=== PATIENT | female | born 1980 | race Caucasian/White ===

== ENCOUNTER 2019-10-15 09:14 | Outpatient (CLI) | payer OTHER, SELFPAY ==
--- NOTE | ~2019-10-15 | US_ITS ---
EXAMINATION: US OB limited DATE: 10/15/2019 09:45 INDICATION: Low lying placenta. Second trimester. TECHNIQUE: Real-time ultrasound of the pelvis was performed. COMPARISON: Ultrasound 06/26/2019 FINDINGS: There is a single fetus in breech presentation. The placenta is posterior, 3.1 cm from the cervix. F etal heart rate is 171 beats per minute (bpm). The amniotic fluid volume is subjectively normal. IMPRESSION: 1. Single living fetus in breech presentation. 2. Normal placenta. Reviewed, dictated and finalized at location A.
== END 2019-10-15 09:15 | disposition home or self-care (01) ==
PROVIDERS: PCP Family Medicine; Visit Provider Obstetrics & Gynecology Gynecology
DX: O44.42 Low lying placenta NOS or without hemorrhage, second trimester (principal)
CPT/HCPCS: 76815

== ENCOUNTER 2019-11-05 11:45 | Observation (INO) | payer OTHER, SELFPAY ==
[2019-11-05] VITALS (8 sets, daily range): BP systolic 89–109; BP diastolic 45–70; PULSE 85–106; BMI 25.2
[2019-11-05 13:00] LABS: Add Urine Microscopic? NO; Appearance Urine Clear (Clear); Bilirubin Urine Negative (Negative); Blood Urine Negative (Negative); Color Urine Straw (Yellow); Glucose Urine UA Negative (Negative); Ketones Urine Negative (Negative); Leukocyte Esterase Ur Negative LEU/UL (NEGATIVE); Nitrate Urine Negative (Negative); Protein Urine Negative (Negative); Specific Grav Ur 1.006 (1.001-1.035); Urobilinogen Urine Negative mg/dL (<2.0)
[2019-11-05 13:01] LABS: Bacteria Urine 2+ /hpf; Mucus Urine Rare /lpf; RBC Urine 0-2 /hpf (0-2); Squamous Epithelial Cell Urine Occasional /hpf (Few); WBC Urine 0-3 /hpf (0-3)
[2019-11-05 14:03] LABS: Hematocrit 28.3 % (37.0-47.0); Hemoglobin 9.8 g/dL (12.0-15.0); Mean Corpuscular HGB Conc 34.6 g/dl (32-36); Mean Corpuscular Hemoglobin 31.4 pg (26-34); Mean Corpuscular Volume 90.7 fl (80-100); Mean Platelet Volume 9.9 fl (7.4-10.4); Platelet Count Result 224 k/mm3 (150-375); Red Blood Count 3.12 M/mm3 (4.2-5.4); Red Cell Distribution Width 12.2 % (11.5-14.5); White Blood Count 11.4 K/mm3 (4.5-10.0)
--- NOTE | 2019-11-05 14:52 | OBADM ---
This patient, Evelin Cortés, admitted to the OB room OB Post 112 for observation. Patient/family oriented to hospital policies and general routines including ID bracelet, bed and alarms, visiting hours, pain management, procedures, bathroom and other care routines, personal items, smoking policy, room service/diet, and visiting hours. Patient/Family are encouraged to report perceived risks to care and to ask questions if they do not understand what they are told or what they should do.
--- NOTE | 2019-11-14 11:43 | P.PNOB_ITS ---
OB - Triage/Final Diagnosis Evaluation Laboratory results: Laboratory Tests 11/05/19 11/05/19 12:50 13:50 WBC 11.4 H RBC 3.12 L Hgb 9.8 L D Hct 28.3 L MCV 90.7 MCH 31.4 MCHC 34.6 RDW 12.2 Plt Count 224 MPV 9.9 Urine Color Straw Urine Appearance Clear Urine pH 7.0 Ur Specific [place] 1.006 Urine Protein Negative Urine Glucose (UA) Negative Urine Ketones Negative Ur Blood (Man) Negative Urine Nitrate Negative Urine Bilirubin Negative Urine Urobilinogen Negative Ur Leukocyte Esterase Negative Urine RBC 0-2 Urine WBC 0-3 Ur Squamous Epith Cells Occasional Urine Bacteria 2+ H Urine Mucus Rare Final Diagnosis (1) contractions: Code(s): O47.9 - False labor, unspecified Status: Acute
== END 2019-11-05 15:14 | disposition home or self-care (01) ==
PROVIDERS: Admitting Provider Obstetrics & Gynecology; PCP Family Medicine; Visit Provider Obstetrics & Gynecology
DX: O47.02 False labor before 37 completed weeks of gestation, second trimester (principal); Z3A.27 27 weeks gestation of pregnancy; O09.522 Supervision of elderly multigravida, second trimester
CPT/HCPCS: 36415; 81003; 85027; 87086; G0378; G0379

== ENCOUNTER 2020-01-26 05:39 | Inpatient (IN) | payer OTHER, SELFPAY ==
--- NOTE | 2020-01-07 14:18 | PC.NURSE ---
VERIFIED WITH OR SCHEDULE AND PATIENT--C/S WITH TUBAL LIGATION ON 01/28/20 AT 0730 PATIENT GIVEN REQUISITION FOR PRE-OP LAB DRAW ON 01/26/20
[2020-01-26] VITALS (46 sets, daily range): BP systolic 91–118; BP diastolic 46–76; PULSE 67–120; RESP 13–20; TEMP 36.4–36.9; O2SAT 98–100; BMI 27.3
[2020-01-26] MEDS: LACTATED RINGERS 1,000 ML 125 ML IV CONT ×2 (06:56→08:43)
--- NOTE | 2020-01-26 07:25 | LDADM ---
This patient, Evelin Cortés, was admitted to Labor/Delivery/Recovery 120 on 01/26/20 at 05:39. Plans for labor, pain management and were discussed with patient. Patient/family oriented to hospital policies and general routines including ID bracelet, bed and alarms, visiting hours, pain management, procedures, bathroom and other care routines, personal items, smoking policy, room service/diet and guest tray routines, security routines, and visiting hours. Patient/Family are encouraged to report perceived risks to care and to ask questions if they do not understand what they are told or what they should do. See OBIX for further documentation.
[2020-01-26 07:41] LABS: Basophils Percent Auto 0.3 % (0.2-1.2); Eosinophils Absolute Auto 0.1 K/mm3 (0-0.3); Hematocrit 35.9 % (37.0-47.0); Hemoglobin 12.8 g/dL (12.0-15.0); Immature Granulocyte Absolute 0.11 K/mm3 (0.00-0.031); Mean Corpuscular HGB Conc 35.7 g/dl (32-36); Mean Corpuscular Hemoglobin 31.4 pg (26-34); Mean Platelet Volume 10.8 fl (7.4-10.4); Monocytes Absolute Auto 0.7 K/mm3 (0.1-0.6); Monocytes Percent Auto 6.3 % (2.6-8.5); Neutrophils Absolute Auto 8.5 K/mm3 (1.3-6.7); Neutrophils Percent Auto 75.4 % (45.5-73.1); Platelet Count Result 263 k/mm3 (150-375); Red Blood Count 4.08 M/mm3 (4.2-5.4); Red Cell Distribution Width 12.6 % (11.5-14.5); White Blood Count 11.3 K/mm3 (4.5-10.0)
--- NOTE | 2020-01-26 08:31 | WPDANESEPPF ---
Anes - Initial Pre Proc Eval Procedure: Operation Date: 01/26/20 09:00 Proposed Procedures p Repeat Section With Bilateral Tubal Ligation With Fallopian Rings - Rissa Astudillo MD Date/Time: 01/26/20 08:31 Surgeon: Rissa Astudillo MD Pre Op Diagnosis: section Patient Data Age: 39 Gender: F Height: 1.57 m Weight: 68 kg Last Vital Signs Pulse 104 H 01/26/20 06:31 BP 110/76 01/26/20 06:31 Allergies Allergy/AdvReac Type Severity Reaction Status Date / Time erythromycin base Allergy Unknown Hives Verified 01/07/20 13:39 Home Medications Medication Instructions Recorded Confirmed Type tablet PO 06/10/19 History aspirin [Adult Low Dose Aspirin] 81 mg PO DAILY 01/07/20 01/07/20 History ergocalciferol (vitamin D2) 1,250 mcg PO WEEKLY 01/07/20 01/07/20 History [Vitamin D2] ferrous sulfate 325 mg PO DAILY 01/07/20 01/07/20 History Laboratory Tests 01/26/20 01/26/20 01/26/20 06:53 06:53 06:53 WBC 11.3 K/mm3 H K/mm3 (4.5-10.0) RBC 4.08 M/mm3 L M/mm3 (4.2-5.4) Hgb 12.8 g/dL D g/dL (12.0-15.0) Hct 35.9 % L % (37.0-47.0) MCV 88.0 fl fl (80-100) MCH 31.4 pg pg (26-34) MCHC 35.7 g/dl g/dl (32-36) RDW 12.6 % % (11.5-14.5) Plt Count 263 k/mm3 k/mm3 (150-375) MPV 10.8 fl H fl (7.4-10.4) Immature Gran % (Auto) 1.0 % H % (0-0.5) Neut % (Auto) 75.4 % H % (45.5-73.1) Lymph % (Auto) 16.0 % L % (18.3-44.2) [place] % (Auto) 6.3 % % (2.6-8.5) Eos % (Auto) 1.0 % % (0-4.4) Baso % (Auto) 0.3 % % (0.2-1.2) Lymph # (Auto) 1.80 K/mm3 K/mm3 (0.9-3.2) [place] # (Auto) 0.7 K/mm3 H K/mm3 (0.1-0.6) Eos # (Auto) 0.1 K/mm3 K/mm3 (0-0.3) Baso # (Auto) 0.0 K/mm3 K/mm3 (0.0-0.1) Abs Immat Gran (auto) 0.11 K/mm3 H K/mm3 (0.00-0.031) Absolute Neuts (auto) 8.5 K/mm3 H K/mm3 (1.3-6.7) Absolute Nucleated RBC 0.0 K/mm3 K/mm3 (0.0-0.012) Nucleated RBC % 0.0 % % (0.0-0.2) RPR Pending Blood Type A Positive Antibody Screen Negative Patient hx anesthesia problems: none Family hx anesthesia problems: none [facility] Past Medical History Medical History (Updated 01/26/20 @ 08:32 by Bakari Whaley MD) H/O paroxysmal supraventricular tachycardia contractions Surgical History Surgical History (Updated 06/10/19 @ 10:21 by Alona Camacho PA-C) History of section Social History Social History (Updated 06/10/19 @ 10:21 by Alona Camacho PA-C) Smoking status: Never smoker Alcohol intake: former Substance use: never Spiritual care concerns: No Anes - Eval Final PreProcedure Day of Procedure 01/26/20 08:31 Patient weight: overweight Heart: regular rate and rhythm Lungs: clear to auscultation and normal air movement Airway: Mallampati scale class II Neurological: alert and oriented Last oral intake: >/= 8 hours ASA classification: II Emergent: no Anesthetic plan: proceed Anesthesia type and monitoring: regional spinal Informed Consent: The patient's anesthetic plan and its attendant risks and benefits were discussed with the patient/family/POA. Questions were solicited and answers provided to the satisfaction of the patient/family/POA.
--- NOTE | 2020-01-26 09:51 | PM.OBDSVD ---
DS: Admitting Diagnosis Admitting Diagnosis Admitting Diagnosis: IUP 39 wks SROM prior section requests sterilization DS: Discharge Diagnosis Discharge Diagnosis (1) delivery delivered: Code(s): O82 - Encounter for delivery without indication Status: Acute (2) Encounter for sterilization: Code(s): Z30.2 - Encounter for sterilization Status: Acute (3) 39 weeks gestation of : Code(s): Z3A.39 - 39 weeks gestation of Status: Acute (4) History of section: Code(s): Z98.891 - History of uterine scar from previous surgery Status: Acute OB - DS: Summary OB Procedures : Ultrasound OB Procedures Intrapartum: low cervical, transverse and Tubal ligation OB Procedures: : None Peripartum Data Infant Delivery Method: Section Procedures: Procedures Operation Date: 01/26/20 09:00 <No data on this case meets the specified criteria> complications: none Status at Discharge Functional status at discharge: independent ambulation Overall status at discharge: patient is progressing back to baseline Time Spent with Patient Time attestation: Total time spent providing and/or coordinating discharge services: DS: Data Data Completed and Pending Labs on day of discharge: Labs from last 24 hours 01/26/20 01/26/20 01/26/20 06:53 06:53 06:53 WBC 11.3 H RBC 4.08 L Hgb 12.8 D Hct 35.9 L MCV 88.0 MCH 31.4 MCHC 35.7 RDW 12.6 Plt Count 263 MPV 10.8 H Immature Gran % (Auto) 1.0 H Neut % (Auto) 75.4 H Lymph % (Auto) 16.0 L [place] % (Auto) 6.3 Eos % (Auto) 1.0 Baso % (Auto) 0.3 Lymph # (Auto) 1.80 [place] # (Auto) 0.7 H Eos # (Auto) 0.1 Baso # (Auto) 0.0 Abs Immat Gran (auto) 0.11 H Absolute Neuts (auto) 8.5 H Absolute Nucleated RBC 0.0 Nucleated RBC % 0.0 RPR Pending Blood Type A Positive Antibody Screen Negative Discharge Plan Discharge Attending physician on discharge: Rissa Astudillo Discharging Clinician: Rissa Astudillo Anticipated Discharge Date/Time: 01/28/20 09:54 Patient Disposition: Home, Self-Care Activity: may shower, may drive after 2 weeks and pelvic rest Diet: regular Wound Care Instructions: incision open to air Patient Instructions: Antibiotic Form Stand Alone Forms: General Discharge Information Follow-up/Referrals: Rissa Astudillo MD [Physician] - 1 Week Discharge Medications: New hydrocodone-acetaminophen 5-325 mg Tablet 1 tab PO Q3H PRN (Reason: Moderate Pain (4-6)) Qty: 20 RF: 0 Continued ergocalciferol (vitamin D2) [Vitamin D2] 1,250 mcg (50,000 unit) Capsule 1,250 mcg PO WEEKLY RF: 0 Discontinued aspirin [Adult Low Dose Aspirin] 81 mg Tablet,Delayed Release (Dr/Ec) 81 mg PO DAILY RF: 0 ferrous sulfate 325 mg (65 mg iron) Tablet 325 mg PO DAILY RF: 0 No Action 28-800 mg-mcg Tablet PO RF: 0 Date of admission: 01/26/20 05:39 Primary Care Provider: Emery Vega Admitting Provider: Rissa Astudillo Attending physician on admission: Rissa Astudillo Condition: Stable
--- NOTE | 2020-01-26 09:54 | PM.PROC ---
Procedure Note - Detailed Date of procedure: 01/26/20 Pre-op diagnosis: section Prior csection; IUP 39 wks; SROM; Requests sterilization Post-op diagnosis: same Procedure performed: repeat LTCS and BTL Description of procedure: The patient was taken to the operating room and placed under spinal anesthesia in the dorsal supine position with a leftward tilt. Once anesthesia was deemed adequate a Pfannenstiel skin incision was made and carried down to the underlying layer of fascia. The fascia was nicked in the midline and extended laterally using Johnson scissors. [facility] 3 used to tent the fascia was then dissected off using sharp and blunt dissection. The peritoneum was tented and entered with Metzenbaum scissors the incision was extended with blunt traction. The bladder blade is placed the vesicouterine peritoneum is tented and entered with Metzenbaum scissors. The bladder flap is created using sharp and blunt dissection due to adhesions. The lower uterine segment is incised in a transverse fashion with the scalpel and extended laterally using blunt traction. The 's head was delivered through the incision while the automotive service assistant applied fundal pressure. The remainder of the infant was fully delivered and the cord clamped and cut. The was handed to the waiting OB nurse. The placenta is removed manually.The uterus is then cleared of all clots and debris. The uterus was exteriorized. The lower uterine segment was closed using 0 Monocryl in a running locked fashion and a 2nd suture of same was used for imbrication. the right tube is grasped with a Vilma and dissected off the ovary using the Bovie cautery. The tube is then cross clamped with a Z clamp removing most of the distal 2/3 of the tube. The tube was excised and the pedicle tied off using 0 Vicryl. Good hemostasis is noted. The left tube is grasped with a [place] and was noted to be anatomically out of place below scar tissue at the round ligament. The scar tissue was Bovie cauterized and the tube released the tube was then crossclamped removing approximately 2/3 of the distal portion of the tube. The tube was excised and the pedicle tied off using 0 Vicryl. The cul-de-sac was irrigated and the uterus returned to the abdomen. The gutters were irrigated. The uterine incision was again inspected and noted to be hemostatic. The fascia was closed using 0 Vicryl in a running fashion. Subcutaneous tissues are irrigated and made hemostatic using Bovie cautery. The skin incision was closed using 4 0 Vicryl in a subcuticular fashion. Dermaflex was placed over the incision. Sponge instrument needle counts are correct per the OR staff. Patient did receive Ancef prior to incision. Anesthesia: spinal Surgeon: Rissa Astudillo MD Estimated blood loss (mL): 345 Drains: Yes (penn) Packing: No Pathology: yes (tubes) Complications: No immediate complications Condition: stable Disposition: PACU Findings: male infant 7#11oz with 9/9 Apgars; normal appearing uterus, tubes, and ovaries; bilateral tubal adhesions
[2020-01-26] MEDS: KETOROLAC 30 MG/ML VIAL (*BKC) IV PUSH ×2 (11:01→23:31)
[2020-01-26] MEDS: DOCUSATE SODIUM 100 MG CAPSULE PO (17:16)
[2020-01-26] MEDS: SIMETHICONE 80 MG TAB.CHEW PO (23:30)
[2020-01-27 04:30] VITALS: BP 107/69; PULSE 80; RESP 16; TEMP 36.7
[2020-01-27] MEDS: SIMETHICONE 80 MG TAB.CHEW PO ×2 (04:36→08:50)
[2020-01-27 05:10] LABS: Basophils Percent Auto 0.2 % (0.2-1.2); Eosinophils Absolute Auto 0.2 K/mm3 (0-0.3); Eosinophils Percent Auto 1.2 % (0-4.4); Hematocrit 31.5 % (37.0-47.0); Hemoglobin 10.8 g/dL (12.0-15.0); Immature Granulocyte Absolute 0.07 K/mm3 (0.00-0.031); Immature Granulocyte Percent A 0.5 % (0-0.5); Lymphocytes Absolute Auto 1.84 K/mm3 (0.9-3.2); Lymphocytes Percent Auto 14.3 % (18.3-44.2); Mean Corpuscular HGB Conc 34.3 g/dl (32-36); Mean Corpuscular Hemoglobin 31.2 pg (26-34); Mean Platelet Volume 10.5 fl (7.4-10.4); Monocytes Absolute Auto 0.8 K/mm3 (0.1-0.6); Neutrophils Percent Auto 77.8 % (45.5-73.1); Platelet Count Result 237 k/mm3 (150-375); Red Blood Count 3.46 M/mm3 (4.2-5.4); Red Cell Distribution Width 12.9 % (11.5-14.5); White Blood Count 12.8 K/mm3 (4.5-10.0)
[2020-01-27 08:00] VITALS: BP 108/53; PULSE 77; RESP 18; TEMP 36.6; O2SAT 100
[2020-01-27] MEDS: DOCUSATE SODIUM 100 MG CAPSULE PO ×2 (08:38→16:30)
[2020-01-27] MEDS: MULTIVIT/MIN/PREN/FOL AC/IRON TABLET 1 TAB PO (08:38)
--- NOTE | 2020-01-27 09:57 | WPDANLDPN2 ---
Anes-Prog Note L&D Date/Time: 01/27/20 09:57 Comfortable throughout: section Neuraxial method: spinal Epidural/Spinal procedure site: clean & non-tender Neuro status: Neuro function grossly intact. Cardiovascular status: normal Respiratory status: normal Airway patency: baseline Mental status: baseline Post-Op hydration status: normal Vital Signs: Last Vital Signs Temp 36.6 C 01/27/20 08:00 Pulse 77 01/27/20 08:00 Resp 18 01/27/20 08:00 BP 108/53 L 01/27/20 08:00 Pulse Ox 100 01/27/20 08:00 I/O: Intake & Output 01/26/20 01/27/20 01/27/20 23:59 07:59 15:59 Intake Total 700 Output Total 1000 1500 Balance -1000 -800 Post-procedural complaints: none Patient feedback: Patient satisfied with anesthetic care.
--- NOTE | 2020-01-27 09:57 | WPDANLDNPN2 ---
Anes-Prog Note L&D-Neuraxial Date/Time: 01/27/20 09:57 Neuraxial medications: intrathecal PF morphine Opiod-related complaints: none Patient feedback: Patient satisfied with post-operative pain management.
[2020-01-27] MEDS: IBUPROFEN 600 MG TABLET PO ×2 (13:06→19:50)
[2020-01-27 19:50] VITALS: BP 104/62; PULSE 73; RESP 14; TEMP 36.7; O2SAT 100
--- NOTE | 2020-01-27 23:22 | PM.OBPNVD ---
OB - PN: Subj Subjective Date/time seen: 01/27/20 23:22 S; patient doing well no complaints pain controlled OB - PN: Obj Data Labs CBC & Chem 7: 01/27/20 04:35 Labs: Laboratory Results - last 24 hr 01/27/20 04:35 WBC 12.8 H RBC 3.46 L Hgb 10.8 L Hct 31.5 L MCV 91.0 MCH 31.2 MCHC 34.3 RDW 12.9 Plt Count 237 MPV 10.5 H Immature Gran % (Auto) 0.5 Neut % (Auto) 77.8 H Lymph % (Auto) 14.3 L [place] % (Auto) 6.0 Eos % (Auto) 1.2 Baso % (Auto) 0.2 Lymph # (Auto) 1.84 [place] # (Auto) 0.8 H Eos # (Auto) 0.2 Baso # (Auto) 0.0 Abs Immat Gran (auto) 0.07 H Absolute Neuts (auto) 10.0 H Absolute Nucleated RBC 0.0 Nucleated RBC % 0.0 OB - PN A/P Assessment and Plan (1) delivery delivered: Code(s): O82 - Encounter for delivery without indication Status: Acute Assessment and Plan: continue with postop care Time Spent With Patient Time: Total time spent is greater than 50% in coordination of care (as documented) at patient's floor/unit and/or counseling patient: Exam GI: Other: Incision clean dry and intact ff at umbilicus
[2020-01-28] MEDS: IBUPROFEN 600 MG TABLET PO ×2 (02:17→09:52)
--- NOTE | 2020-01-28 08:01 | P.PNOB_ITS ---
OB - PN: Subj Subjective Date/time seen: 01/28/20 08:01 Patient comments: no complaints and pain well controlled baby status: doing well OB - PN: Obj Data Labs CBC & Chem 7: 01/27/20 04:35 OB - PN A/P Plan day: 2 Plan: routine care and discharge home Time Spent With Patient Time: Total time spent is greater than 50% in coordination of care (as docum ented) at patient's floor/unit and/or counseling patient: Exam GI: Other: I : Bimanual exam- vagina & uterus: other (Uterus firm, nt @U) Other: inc c/d/i
[2020-01-28 09:30] VITALS: BP 104/58; PULSE 87; RESP 18; TEMP 37.3
[2020-01-28 09:50] LABS: Rapid Plasma Reagin Non-Reactive (NonReactive)
[2020-01-28] MEDS: DOCUSATE SODIUM 100 MG CAPSULE PO (09:51)
[2020-01-30 10:05] VITALS: BP 109/67; PULSE 81; RESP 16; TEMP 37.1; O2SAT 100
--- NOTE | 2020-03-14 11:15 | PM.IMHP ---
H&P: HPI History of Present Illness Date/Time: 03/14/20 11:15 Chief complaint: section Narrative: Evelin Cortés is a 39 year old female here with SROM. Planned repeat csection. uncomplicated PMFSH Past Medical History Medical History (Updated 03/14/20 @ 11:18 by Rissa Astudillo MD) H/O paroxysmal supraventricular tachycardia (normal spontaneous vaginal delivery) contractions Surgical History Surgical History (Updated 03/14/20 @ 11:16 by Rissa Astudillo MD) History of section x 2 Family History Family History (Reviewed 03/03/20 @ 10:08 by Ann Paris [facility]) Grandparent Family history of malignant neoplasm of cervix Family history of malignant neoplasm of breast Family history of malignant neoplasm of ovary Social History Social History (Reviewed 03/03/20 @ 10:08 by Ann Paris [facility]) Smoking status: Never smoker Alcohol intake: former Substance use: never Spiritual care concerns: No Meds Home Medications and Allergies Home Medications Medication Instructions Recorded Confirmed Type ergocalciferol (vitamin D2) 1,250 mcg PO WEEKLY 01/07/20 03/03/20 History [Vitamin D2] hydrocodone-acetaminophen 1 tab PO Q3H PRN #20 tablet 01/28/20 03/03/20 Rx Allergies Allergy/AdvReac Type Severity Reaction Status Date / Time erythromycin base Allergy Unknown Hives Verified 03/03/20 10:07 Exam Const: General: healthy appearing and alert Orientation/consciousness: patient oriented x3 Resp: Effort & Inspection: normal respiratory effort GI: GI Palp: Yes Soft to palpation and No Tenderness to palpation present (GI) Percussion: Yes other (gravid) : External Female Exam: normal external appearance Speculum Exam - Vagina: normal appearance of the vagina and other (grossly ruptured) Neuro: General: patient oriented x3 Assessment and Plan Assessment and plan (1) SROM (spontaneous rupture of membranes): Status: Acute Assessment and Plan: plan to proceed with csection (2) History of section: Code(s): Z98.891 - History of uterine scar from previous surgery Status: Acute
== END 2020-01-28 10:36 | disposition home or self-care (01) | DRG 785 ==
LOC: ANHLDR 09:54 → ANHOB2 12:20
PROVIDERS: Admitting Provider Obstetrics & Gynecology; PCP Family Medicine; Visit Provider Obstetrics & Gynecology Gynecology
PROC: (CPT 59514; principal; 2020-01-28 07:30)
DX: O34.211 Maternal care for low transverse scar from previous cesarean delivery (principal); Z30.2 Encounter for sterilization; O99.824 Streptococcus B carrier state complicating childbirth; Z37.0 Single live birth; Z3A.38 38 weeks gestation of pregnancy
CPT/HCPCS: 36415; 85025; 86592; 86850; 86900; 86901; 88302; A9270; J0131; J1885; J2274; J2405; J2590; J3010; J7120

== ENCOUNTER 2021-10-08 13:55 | Outpatient (RCR) | payer OTHER, SELFPAY ==
[2021-10-08 14:11] VITALS: BP 109/68; PULSE 99; TEMP 36.5; O2SAT 100
[2021-10-08] MEDS: ACETAMINOPHEN 325 MG TABLET 650 MG PO (14:12)
[2021-10-08] MEDS: diphenhydrAMINE HCl CAP 25 MG CAPSULE PO (14:12)
[2021-10-08] MEDS: FAMOTIDINE 20 MG TABLET PO (14:13)
[2021-10-08] MEDS: BEBTELOVIMAB 175 MG/2 ML VIAL IV PUSH (14:32)
[2021-10-08 15:24] VITALS: BP 106/55; PULSE 81; O2SAT 100
== END 2021-10-08 16:00 ==
LOC: AMCINF 13:55
PROVIDERS: Referring Provider Family Medicine; Visit Provider Internal Medicine Hematology & Oncology
DX: U07.1 COVID-19 (principal); I47.1 Supraventricular tachycardia
CPT/HCPCS: A9270; M0222; Q0222

== ENCOUNTER → 2023-03-11 11:25 | Outpatient (CLI) | payer OTHER, SELFPAY ==
--- NOTE | ~2023-03-11 | MR_ITS ---
MRI of the brain Clinical History: Migraine headache Technique: Axial and sagittal T1-weighted images were acquired. These were followed by axial T2-weigh khalif, diffusion weighted, gradient, and FLAIR images. Findings: No significant signal abnormality seen in the brain parenchyma. No acute infarct, intracran ial hemorrhage, or mass lesion. Ventricles and subarachnoid spaces are unremarkable. Orbits are unremarkable. Paranasal sinuses and m astoid air cells are unremarkable. Major intracranial flow voids are intact. Sagittal midline structures are intact. IMPRESSION: Unremarkable exam. Reviewed, dictated and finalized at location M. IMPRESSION: Unremarkable exam.
== END ==
PROVIDERS: PCP Nurse Practitioner Family; Visit Provider Nurse Practitioner Family
DX: G43.909 Migraine, unspecified, not intractable, without status migrainosus (principal)
CPT/HCPCS: 70551

== ENCOUNTER 2023-10-20 13:09 | Outpatient (CLI) | payer OTHER, SELFPAY ==
--- NOTE | ~2023-10-20 | US_ITS ---
EXAMINATION: US thyroid DATE: 10/20/2023 13:21 INDICATION: Hypothyroidism. TECHNIQUE: Multiple ultrasound images of the thyroid were obtained. COMPARISON: None. FINDINGS: The right thyroid lobe measures 3.3 x 1.5 x 1.6 cm. The left thyroid lobe measures 2.8 x 0.8 x 1.1 c m. The thyroid demonstrates heterogeneous hypoechogenicity. Vascularity is increased. No discrete no dule. IMPRESSION: 1. Heterogeneous, hypervascular thyroid, consistent with chronic lymphocytic (Sherri's) thyroiditi s. Reviewed, dictated and finalized at location E. IMPRESSION: 1. Heterogeneous, hypervascular thyroid, consistent with chronic lymphocytic (H ashimoto's) thyroiditis.
== END 2023-10-20 13:10 ==
PROVIDERS: PCP Nurse Practitioner Family; Visit Provider Family Medicine
DX: E03.9 Hypothyroidism, unspecified (principal); E06.3 Autoimmune thyroiditis; R07.0 Pain in throat; R76.8 Other specified abnormal immunological findings in serum
CPT/HCPCS: 76536

== ENCOUNTER 2025-04-11 08:58 | Emergency (ER) | payer OTHER, SELFPAY ==
--- NOTE | ~2025-04-11 | XR_ITS ---
EXAM/PROCEDURE: XR chest 2V HISTORY: Cough in a smoker COMPARISON: None available. TECHNIQUE: Two view(s) of the chest. FINDINGS: LUNGS: Clear of acute processes. PLEURAL SPACES: Clear. No evidence of fluid or pneumothorax. BONES: No acute osseous abnormality. There is a moderate scoliosis convex to the right at about the thoracolumbar junction. There is pectus excavatum deformity. HEART/ MEDIASTINUM: Appears slightly larger then real size because of the pectus excavatum. SOFT TISSUES: No significant findings. IMPRESSION: No acute findings. Reviewed, dictated and finalized at location A. [employer] IMPRESSION: No acute findings.
--- NOTE | 2025-04-11 09:02 | ED_ITS ---
HPI - URI/Sore Throat General Chief Complaint: Upper Respiratory Infection Stated Complaint: Cough Time Seen by Provider: 04/11/25 09:24 Source: patient, RN notes reviewed and old records reviewed Mode of arrival: ambulatory Limitations: no limitations History of Present Illness HPI Narrative: 44-year-old female presents to the [facility] with 5 day history of cough, sinus drainage, sore throat and headache. Had contacted primary care provider. Prescription for cough medicine and a steroid was called in yesterday. Patient reports no improvement since starting. States that she was wheezing last night. Related Data Home Medications ?Medication ?Instructions ?Recorded ?Confirmed ?Last Taken ?Type cholecalciferol (vitamin D3) 125 125 mcg PO DAILY 12/0406/21/24 Unknown History mcg (5,000 unit) capsule Allergies Allergy/AdvReac Type Severity Reaction Status Date / Time erythromycin base Allergy Unknown Hives Verified 04/11/25 09:18 sertraline (From Zoloft) AdvReac Mild did not Verified 11/30/24 15:54 feel right Review of Systems Review of Systems: All systems reviewed & are unremarkable except as noted in HPI and below Constitutional: Constitutional: Reports as per HPI ENT: Reports as per HPI Cardiovascular: Cardiovascular: Reports no additional cardiovascular c omplaints, Denies chest pain and Denies dyspnea Respiratory: Respiratory: Reports as per HPI, Reports chest congestion, Reports cough, Denies dyspnea and Reports wheezing Musculoskeletal: Musculoskeletal: Reports no additional musculoskeletal complaints Integumentary/Breasts: Skin/Breast: Reports system reviewed and no additional complaints, except as docu PMFSH Past Medical History Medical History Sherri's thyroiditis (normal spontaneous vaginal delivery) H/O paroxysmal supraventricular tachycardia contractions Surgical History Surgical History History of section x 2 Family History Family History Grandparent Family history of malignant neoplasm of cervix Family history of malignant neoplasm of breast Family history of malignant neoplasm of ovary Social History Social History Smoking packs per day: 0.5 Smoking cigarettes per day: 10.0 Tobacco type: cigarettes Alcohol intake: current Alcohol use details: occasionally Substance use: current Substance use type: does not use Lack of Transportation: No Lack of Food: Never True Current Housing: I Have Housing Concerned About Future Housing: No Difficulty Paying Gas/Electric Bills: No Difficulty Paying for Meds: No Currently Unemployed: No Education: High School Diploma/GED Difficulty w/ Childcare or Family Care: No Spiritual care concerns: No Comments At the time of my signature, I reviewed and agree with the nursing past medical, surgical, social, and family history. There is no relevant family history pertinent to the patient complaint. Exam Const: General: cooperative, healthy appearing, comfortable, no acute distress, well developed, alert and well nourished Nutritional Appearance: well nourished Orientation/consciousness: patient oriented x3 Limitations: no limitations HENMT: Head: normal to inspection Ears: hearing grossly normal bilaterally, external ears normal, TM's normal bilaterally, EAC's normal, mastoids normal and no periauricular adenopathy Face and sinus: normal facial exam and face symmetric Mouth: Yes Normal oral and palatal mucosa present, Yes lip normal, Yes tongue normal and Yes moist mucous membranes Throat: posterior oropharynx normal, uvula midline and no uvular edema Eyes: General: appearance normal, both eyes and all related structures Alignment and Position: alignment normal Neck: Neck: normal visual inspection, full ROM, no lymphadenopathy and no meningeal signs Chest: Chest palpation & inspection: normal inspection of the chest Resp: Effort & Inspection: normal respiratory effort and able to speak in complete sentences Auscultation: no crackles, no rales, no rhonchi and wheezes expiratory wheezes and scattered wheezes Cardio: Rate: regular rate Skin: General skin exam: normal color and no rashes or lesions noted Neuro: General: patient oriented x3, gait normal, moves all extremities and no meningeal signs Cognition (Neuro): normal cognition Speech: normal speech Gait exam (Neuro): Normal gait present Extrem: General: normal to inspection, full ROM, capillary refill normal and normal gait Psych: Appearance: grossly normal and well kempt Mental Status: mental status grossly normal Speech and movement: Normal speech and movement present and Clear speech present Affect: normal affect Attitude: cooperative Course Course Level of Care: Express Care Visit Vital Signs Vital signs: Vital Signs Temperature 98.2 F 11/06/25 09:06 Pulse Rate 91 04/11/25 09:06 Respiratory Rate 18 04/11/25 09:06 Blood Pressure 132/64 04/11/25 09:06 Pulse Oximetry 98 04/11/25 09:06 Oxygen Delivery Room Air 04/11/25 09:06 Temperature 98.2 F 04/11/25 09:06 Pulse Rate 91 04/11/25 09:06 Respiratory Rate 18 04/11/25 09:06 Blood Pressure 132/64 04/11/25 09:06 Pulse Oximetry 98 04/11/25 09:06 Oxygen Delivery Room Air 04/11/25 09:06 Reviewed MDM - URI/Sore Throat MDM Narrative Medical decision making narrative: Patient sitting in exam room. Patient is nontoxic, vitals stable. Patient with 5 day history of URI symptoms, primary had called and cough suppressant, steroid and she started taking Mucinex yesterday, patient states symptoms got worse, was coughing, productive cough. Patient is concerned she might have pneumonia. Patient is a smoker X-rays negative for acute findings. Exam were consistent with bronchitis, added inhaler due to patient's wheezing. Stop smoking. Follow-up primary care provider, continue the steroid. Discussed other [id number] products which she verbalized understanding Discharge instructions reviewed with patient, as well as provided in writing per nursing staff. The instructions also include specific and strict return/GO TO THE ER as well as f/u information. All questions have been answered, and the patient deny any further questions with discharge and discharge plan. Some parts of this dictation were generated by voice recognition software and may contain typographical and/or grammatical inaccuracies. Differential Diagnosis Differential diagnosis: Likely upper respiratory infection, sinusitis, viral infection and bronchitis Imaging Data Radiologist's impression: EXAM/PROCEDURE: XR chest 2V HISTORY: Cough in a smoker COMPARISON: None available. TECHNIQUE: Two view(s) of the chest. FINDINGS: LUNGS: Clear of acute processes. PLEURAL SPACES: Clear. No evidence of fluid or pneumothorax. BONES: No acute osseous abnormality. There is a moderate scoliosis convex to the right at about the thoracolumbar junction. There is pectus excavatum deformity. HEART/ MEDIASTINUM: Appears slightly larger then real size because of the pectus excavatum. SOFT TISSUES: No significant findings. IMPRESSION: No acute findings. Critical Care Time Critical Care Time Critical Care Time: No Discharge Plan Discharge Clinical Impression: Bronchitis Patient Disposition: Home Condition: Stable Instructions: Antibiotic Form, Acute Bronchitis (ED) Additional Instructions: It is very important to treat your symptoms. Drink plenty of water, Gatorade, Pedialyte, ice pops or Jell-O. -Alternate Tylenol and Motrin per package directions for fever or pain. You can alternate every 4 hours -Antihistamine medication such as Zyrtec/Claritin/Gabrielle during the day can help improve symptoms. -Use Flonase twice a day for 5 days then daily to help reduce the inflammation and dry up your sinuses. -You can also use Mucinex. Be sure to drink plenty of water with this medication at least 8 ounces with every dose and it is important to drink 8 to 10 glasses of water per day. Water is a natural decongestant -Eat and drink things that are easy to swallow, like tea or soup, or popsicles. -Oral rinses such as: Salt water gargles and/or may use topical anesthetic (eg. Chloraseptic spray) or lozenges to relieve dryness or throat pain). -Frequent hand washing or hand chef instructor is one of the best ways to prevent spread of infection. -Using a vaporizer or humidifier at night will also help thin secretions and help with coughing up phlegm. -Follow up with primary care provider in 7-10 days if condition is not improving - For new or worsening symptoms go directly to the nearest ER Patient Language: Syriac Prescriptions: New albuterol sulfate [Ventolin HFA] 90 mcg/actuation HFA aerosol inhaler 2 puff inhalation QID PRN (Reason: shortness of breath or wheezing) Qty: 6.7 0RF (DME) Aerochamber MV Spacer See Rx Instructions .Route Qty: 1 0RF Rx Instructions: As directed No Action cholecalciferol (vitamin D3) 125 mcg (5,000 unit) capsule 125 mcg PO DAILY propranolol [Inderal LA] 80 mg capsule,extended release 24 hr 80 mg PO DAILY Qty: 30 1RF Nurtec ODT 75 mg tablet,disintegrating 75 mg PO ONCE PRN (Reason: migraine headache) Qty: 14 3RF Rx Instructions: as a single dose levothyroxine 50 mcg tablet 50 mcg PO .COMPLEX Qty: 130 2RF Rx Instructions: 50 mcg orally 9 pills a week (one pill from Tuesday to Tuesday, 2 on Saturdays and 2 on Sundays) liothyronine 5 mcg tablet See Rx Instructions .ROUTE .COMPLEX Qty: 90 1RF Dose Instruction: TAKE 1 TABLET BY MOUTH DAILY Rx Instructions: TAKE 1 TABLET BY MOUTH DAILY benzonatate 200 mg capsule 200 mg PO TID PRN (Reason: cough) Qty: 30 0RF codeine-guaifenesin 10-100 mg/5 mL liquid 5 ml PO Q6H PRN (Reason: cough) Qty: 120 0RF methylprednisolone [Medrol (Handy)] 4 mg tablets,dose pack See Rx Instructions PO PER PKG DIR Qty: 21 0RF Rx Instructions: PO PER PKG DIR Follow-up/Referrals: Joleen Leyva, ROQUE, ECOLOGICAL RISK ASSESSOR-C [Primary Care Provider, Family Practice] - 2 Weeks Stand Alone Forms: Work/School Release IP Time of Disposition: 10:07
[2025-04-11 09:06] VITALS: BP 132/64; PULSE 91; RESP 18; TEMP 36.8; O2SAT 98
--- OUTSIDE RECORDS SUMMARY | 2025-04-11 17:45 | XMS_ITS | Clinical Summary ---
Author Organization [facility] Address [address] [place] [address] Care Team Providers Care Winch Stripper Name Role Phone Emery Vega MD Primary Care Provider [phone] Allergies Active Allergy Reactions Criticality Noted Date Comments Erythromycin Medications metoprolol (LOPRESSOR) 25 mg tablet TAKE 1 TABLET BY MOUTH TWICE DAILY (PRN) 60 5 12/24/2015 Active ergocalciferol (VITAMIN D) 50,000 unit capsule TAKE 1 CAPSULE BY MOUTH WEEKLY 07/31/2020 Active levothyroxine (SYNTHROID) 50 mcg tablet TAKE 1 TABLET BY MOUTH EVERY MORNING. DO NOT EAT OR DRINK FOR 1 HOUR AFTER 07/18/2020 Active cyanocobalamin (Vitamin B-12) 1,000 mcg tabletIndicatio ns:Prevention of Vitamin B12 Deficiency Take 1,000 mcg by mouth daily Active ibuprofen (ADVIL,MOTRIN) 200 mg tab/cap Take by mouth every 6 (six) hours as needed for pain Active acetaminophen (TYLENOL) 325 mg tablet Take 650 mg by mouth every 6 (six) hours as needed for pain Active Active Problems Problem Noted Date Diagnosed Date Supraventricular tachycardia 12/24/2015 Overview (09/09/2016): SVT Surgical History Surgery Date Site/Laterality Comments SECTION CARDIAC SURGERY US ABDOMEN COMPLETE W LIVER DOPPLER (C) 10/02/2020 R ight Medical History Medical History Date Comments Hx Other Medical ; Comm ents: [place] 10/02/2015 - Hx Other Medical SVT; Comments: [place] 10/02/2015 - Anemia Migraines Thyroid disease Family History Medical History Relation Name Comments Arthritis Mother Scoliosis Mother Relation Name Status Comments Mother Social History Tobacco Use Types Packs/Day Years Used Date Smoking Tobacco: Every Day Cigarettes 0.3 20 Alcohol Use Standard Drinks/Week Comments Yes 0 (1 standard drink = 0.6 oz pur e alcohol) AUDIT-C Answer Date Recorded Q1: How often do you have a drink containing alc ohol? 2-4 times a month 09/22/2020 Q2: How many drinks containi ng alcohol do you have on a typical day when you are drinking? 1 or 2 09/22/2020 Q3: How often do you have si x or more drinks on one occasion? 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 Gender Identity Not on file Sexual Orientation Not on file Last Filed Vital Signs Vital Sign Reading Time Taken Comments Blood Pressure 108/57 10/02/2020 2:18 PM CDT Pulse 81 10/02/2020 2:18 PM CDT Temperature - - Respiratory Rate 14 10/02/2020 2:18 PM CDT Oxygen Saturation - - Inhaled Oxygen Concentration - - Weight 57.6 kg (127 lb) 09/22/2020 8:46 AM CDT Height 159.4 cm (5' 2.75) 09/22/2020 8:46 AM CD T Body Mass Index 22.68 09/22/2020 8:46 AM CDT Plan of Treatment Not on file Insurance [facility] CHOICE PLUS ANTHE[employer] ACCESS Member Subscriber Plan / Payer (Ef fective 2020-Present) Name:Evelin Cortés Relation to Subscriber:Spouse Name:KLAUSHARESHARTHUR Subscriber ID:Not on file Date of :1900 Address: [address] [place] [address] Payer ID:[id number] (NAIC) Type:[facility] Address: [address] CHOICE PLUS [place] [phone] CHOICE PLUS Care Teams Winch Stripper Relationship Specialty Start Date End Date Emery Vega MD PCP - General 09/03/16
--- OUTSIDE RECORDS SUMMARY | 2025-04-11 17:45 | XMS_ITS | Patient Health Record ---
Author Organization [facility] Address [address] [place] [address] Care Team Providers Care Dope Pourer Name Role Phone Gary LIN, Emery Primary Care Provider Angie Eaton Unavailable [phone] Autumn [facility], Joleen Unavailable Unavail able Reason For Referral No Information Medications Medication SIG (Take, Route, Frequency, Duration) Notes Start Date End Date Status Levothyroxine Sodium 75 MCG take 1 capsu le (75 mcg) by oral route once daily Oral 1 Active Propranolol HCl 40 MG take 1 tablet (40 mg) by oral route 2 times per day Oral 2 Active Black Cohosh 540 mg take 1 capsule by or al route once Oral 1 Active Venlafaxine HCl 37.5 MG take 1 tablet daily-tapering off Oral Active Plan Of Treatment No Information Insurance Providers Payer Name Payer Address Payer Phone Subscriber Number Group Number Insured Name Patient Relationship to Insured Coverage Start Date Coverage End Date DO NOT USE [id number] MooEvelin Self - patient is the insured Medical (General) History Surgical History Surgery Date(Month/Year) C section; 2022-11-12
--- OUTSIDE RECORDS SUMMARY | 2025-04-11 17:45 | XMS_ITS | Patient Health Record ---
Author Organization [facility] [employer] Address [address] [facility] [address] [place] [address] Care Team Providers Care Retail Aide Name Role Phone Sergio Cloud Unavailable [phone] Reason For Referral No Information Plan Of Treatment No Information Insurance Providers Payer Name Payer Address Payer Phone Subscriber Number Group Number Insured Name Patient Relationship to Insured Coverage Start Date Coverage End Date [facility] [address] [place] [address] [phone] [id number] EDWIN GRAJEDA Self - patient is the insured
--- OUTSIDE RECORDS SUMMARY | 2025-04-11 17:46 | XMS_ITS | Clinical Summary ---
Author Organization [facility] Address [address] [place] [address] Care Team Providers Care Ironworker Name Role Phone Unavailable Primary Care Provider Unavailabl e Source Comments [facility],non-owned Affiliates and Associated Physician Practices is amultiple site organization consisting of ambulatory clinics and hospital sitesin [place], [place] and [place]. This disclosure is being madepursuant to the Care Everywhere program and may not contain all information available regarding this patient. Last updated 18.[facility] Bleacher Report Social History Tobacco Use Types Packs/Day Years Used Date Smoking Tobacco: Never Assessed Comments Unknown Sex and Gender Information Value Date Recorded Sex Assigned at Not on file Legal Sex Female 8:40 AM CDT Gender Identity Not on file Sexual Orientation Not on file Plan of Treatment Health Maintenance Due Date Last Done Comments LIPID TESTING 1980 MAMMOGRAM 1980 HIV SCREENING 09/02/1995 HEPATITIS C SCREENING 08/28/1998 DTAP/TDAP/TD VACCINES (1 - Tdap) 09/02/1999 HEPATITIS B VACCINE (1 of 3 - 19+ 3-dose series) 09/02/1999 PAP SMEAR 2001 HPV VACCINE (1 - 3-dose SCDM series) 09/02/2007 DEPRESSION SCREENING 06/06/2024 COVID-19 VACCINE (1 - 2023-2 5 season) 2025 INFLUENZA VACCINE (#1) 2025 ZOSTER VACCINE (1 of 2) 2030 HIB VACCINE Aged Out No longer eligi ble based on patient's age to complete this topic MENINGOCOCCAL (Group B) VACC INE SHARED DECISION-MAKING Aged Out No longer eligibl e based on patient's age to complete this topic MENINGOCOCCAL GROUPS A/C/Y/W VACCINE Aged Out No longer eligible b ased on patient's age to complete this topic PNEUMOCOCCAL VACCINE Aged Out No long er eligible based on patient's age to complete this topic Insurance Member Subscriber Plan / Payer (Ef fective 2019-Present) Name:Edwin Cortés Relation to Subscriber:Self Name:EDWIN CORTÉS Payer ID:[id number] (NAIC) Type:[employer] Address: [place] [id number] [place] [id number] [facility] [place] [phone]
--- OUTSIDE RECORDS SUMMARY | 2025-04-11 17:46 | XMS_ITS | Encounter Summary ---
Author Organization [facility] Address [address] [place] [address] Care Team Providers Care Utility Appraiser Name Role Phone Unavailable Primary Care Provider Unavailabl e Encounter Details Date Type Department Care Team (Late st Contact Info) Description 11/16/2023 Lab Requisition [facility] - DermPath Lab [address] [place] [id number] Boby Plunkett MD [facility] DERMATOLOGY [address] [place] [phone] Neoplasm of uncertain behavior of skin Social History Tobacco Use Types Packs/Day Years Used Date Smoking Tobacco: Never Assessed Comments Unknown Sex and Gender Information Value Date Recorded Sex Assigned at Not on file Legal Sex Female 8:40 AM CDT Gender Identity Not on file Sexual Orientation Not on file documented as of this encounter Plan of Treatment Not on file documented as of this encounter Procedures Procedure Name Priority Date/Time Associated Diagnosis Comments DERMATOPATHOLOGY Routine 11/16/2023 12:0 0 AM CDT Neoplasm of uncertain behavior of skin documented in this encounter Results * DERMATOPATHOLOGY (11/16/2023 12:00 AM CDT) Case Report Dermatopathology Report Case: [id number] Authorizing Provider: Boby Plunkett MD Collected: 11/16/2023 12:00 AM Ordering Location: [facility] - Received: 11/17/2023 04:30 PM DermPath Lab Pathologist: Johana Granda MD Specimen: Skin, right inferior media malar cheek 4:33 PM CDT DERMATOPATHOLOGY LABORATORY Final Diagnosis Specimen A. SKIN, right inferior media malar cheek: BASAL CELL CARCINOMA, NODULAR TYPE (C44.319) (see microscopic description) 4 4:33 PM CDT DERMATOPATHOLOGY LABORATORY at 1633 CDT Clinical History BCC 4 4:33 PM CDT DERMATOPATHOLOGY LABORATORY Gross Description Specimen A: Received is one formalin filled container labeled with the patient's name and designated right inferior media malar cheek. The specimen consists of a shave biopsy measuring 3x3x1 mm. Jar 0. 4:33 PM CDT DERMATOPATHOLOGY LABORATORY Microscopic Description Specimen A. SKIN, right inferior media malar cheek: Within the dermis there are aggregates of basaloid cells with a high nuclear to cytoplasmic ratio and peripheral palisading. Additional deeper sections were obtained and reviewed. 4:33 PM CDT DERMATOPATHOLOGY LABORATORY Disclaimer An external and internal positive and negative controls are appropriate for the histochemical, immunohistochemical and immunofluorescence stain(s) in this case (if any), except where stated explicitly. The performance characteristics of the stain(s) cited in this report were developed and its performance characteristic determined by the Dermatopathology Laboratory at [facility], directed by Dr. Luis Miguel Snyder. These tests need not be, and therefore are not, approved by the [place] Food and Drug Administration. The tests are used for clinical purposes. Billing Codes Specimen Charges Stain Charges 75472 1 4 4:33 PM CDT DERMATOPATHOLOGY LABORATORY Embedded Images 4 4:33 PM CDT DERMATOPATHOLOGY LABORATORY Pathology/Cytolog y TISSUE SPECIMEN FROM SKIN / Unknown 11/16/2023 11/17/2023 4:30 PM CDT us Boby Plunkett MD LAB - PATHOLOGY/CYTOLOGY [facility] CARVALHO Final Result DERMATOPATHOLOGY LABORATORY [facility] - Department of Dermatology [address] [place] [address], [facility] [phone] documented in this encounter Visit Diagnoses Diagnosis Neoplasm of uncertain behavior of skin documented in this encounter
--- OUTSIDE RECORDS SUMMARY | 2025-04-11 17:46 | XMS_ITS | Clinical Summary ---
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 Gender Identity Not on file Sexual Orientation Not on file Plan of Treatment Health Maintenance Due Date Last Done Comments DTAP/TDAP/TD VACCINES (1 - Tdap) 09/02/1999 HEPATITIS B VACCINES (1 of 3 - 19+ 3-dose series) 08/05 HPV/Cotest (21-29) 2001 HPV VACCINES (1 - 3-dose SCDM series) 09/02/2007 CERVICAL CANCER SCREENING 2010 HPV/Cotest (30-65) 2010 PAP SMEAR 2010 BREAST CANCER SCREENING 2020 INFLUENZA VACCINE (#1) [address] [place] [place] [address] OPTIONS PPO [id number] Care Teams Combine Operator Relationship Specialty Start Date End Date Emery Vega MD PCP - General Family Practice 04/17/18
== END 2025-04-11 10:11 | disposition home or self-care (01) ==
PROVIDERS: Emergency Provider Nurse Practitioner; PCP Nurse Practitioner Family
DX: J40 Bronchitis, not specified as acute or chronic (principal); F17.210 Nicotine dependence, cigarettes, uncomplicated; E06.3 Autoimmune thyroiditis
CPT/HCPCS: 71046; 99213; G0463

== ENCOUNTER 2025-04-15 16:43 | Emergency (ER) | payer OTHER, SELFPAY ==
--- OUTSIDE RECORDS SUMMARY | 2025-04-15 16:45 | XMS_ITS | Encounter Summary ---
Author Organization [facility] Address [address] [place] [address] Care Team Providers Care Program Advisor Name Role Phone Unavailable Primary Care Provider Unavailabl e Encounter Details Date Type Department Care Team (Late st Contact Info) Description 11/16/2023 Lab Requisition [facility] - DermPath Lab [address] [place] [id number] Boby Plunkett MD [facility] DERMATOLOGY [address] [place] [phone] Neoplasm of uncertain behavior of skin [...] AM CDT) Case Report Dermatopathology Report Case: [id number] Authorizing Provider: Boby Plunkett MD Collected: 11/16/2023 12:00 AM Ordering Location: [facility] - Received: 11/17/2023 04:30 PM [...] characteristic determined by the Dermatopathology Laboratory at [facility], directed by Dr. Luis Miguel Snyder. These tests need not be, and therefore are not, approved by the [place] Food and Drug Administration. The tests are used for clinical purposes. Billing Codes Specimen Charges Stain Charges 20584 1 4 4:33 PM CDT DERMATOPATHOLOGY LABORATORY Embedded Images 4 4:33 PM CDT DERMATOPATHOLOGY LABORATORY Pathology/Cytolog y TISSUE SPECIMEN FROM SKIN / Unknown 11/16/2023 11/17/2023 4:30 PM CDT us Boby Plunkett MD LAB - PATHOLOGY/CYTOLOGY DORA CARVALHO Final Result DERMATOPATHOLOGY LABORATORY [facility] - Department of Dermatology [address] [place] [address], [facility] [phone] documented in this encounter Visit Diagnoses Diagnosis Neoplasm of uncertain behavior of skin documented in this encounter
--- OUTSIDE RECORDS SUMMARY | 2025-04-15 16:45 | XMS_ITS | Clinical Summary ---
Author Organization [facility] Address [address] [place] [address] Care Team Providers Care Senior Technical Writer Name Role Phone Unavailable Primary Care Provider Unavailabl e Source Comments [facility],non-owned Affiliates and Associated Physician Practices is amultiple site organization consisting of ambulatory clinics and hospital sitesin [place], [place], [place] and [place]. This disclosure is being madepursuant to the Care Everywhere program and may not contain all information available regarding this patient. Last updated 18.[facility] [employer] Social History Tobacco Use Types Packs/Day Years [...] to Subscriber:Self Name:EDWIN CORTÉS Payer ID:[id number] (NAIC) Type:[employer] Address: [place] [id number] [place] [id number] [facility] [place] [phone]
--- OUTSIDE RECORDS SUMMARY | 2025-04-15 16:45 | XMS_ITS | Clinical Summary ---
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 Gender Identity Not on file Sexual Orientation [...] Plan of Treatment Not on file Insurance [facility] HMO/PPO Address: [address] [address] [place] [address] [employer] ACC[employer] Member Subscriber Plan / Payer (Ef fective 2020-Present) Name:Evelin Cortés Relation to Subscriber:Spouse Name:KLAUSHARESHARTHUR Subscriber ID:Not on file Date of :1900 Address: [address] [place] [address] Payer ID:[id number] (NAIC) Type:[facility] Address: [phone] CHOICE [facility] HMO/PPO Address: [address] [address] [place] [phone] [facility] HMO/PPO Address: [address] [address] [place] [address] Care Teams City Controller Relationship Specialty Start Date End Date Emery Vega MD PCP - General 09/03/16
--- OUTSIDE RECORDS SUMMARY | 2025-04-15 16:46 | XMS_ITS | Clinical Summary ---
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
--- NOTE | 2025-04-15 16:52 | PC.NURSE ---
Pt to intake desk stating Hey, I'm just gonna leave. Pt ambulated to exit using steady gait NAD noted
--- OUTSIDE RECORDS SUMMARY | 2025-04-15 17:33 | XMS_ITS | Clinical Summary ---
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 CHOICE PL[facility] HMO/PPO Address: [address] [address] [place] [address] [employer] ACCESS Member Subscriber Plan / Payer (Ef fective 2020-Present) Name:Evelin Cortés Relation to Subscriber:Spouse Name:KLAUSHARESHARTHUR Subscriber ID:Not on file Date of :1900 Address: [address] [place] [address] Payer ID:[id number] (NAIC) Type:[facility] Address: [address] CHO[address] [facility] HMO/PPO Address: [address] [address] [place] [phone] [facility] HMO/PPO Address: [address] [address] [place] [address] Care Teams Phlebotomy Lab Assistant Relationship Specialty Start Date End Date Emery Vega MD PCP - General 09/03/16
--- OUTSIDE RECORDS SUMMARY | 2025-04-15 17:34 | XMS_ITS | Clinical Summary ---
Author Organization [facility] Address [address] [place] [address] Care Team Providers Care Circuit Breaker Assembler Name Role Phone Unavailable Primary Care Provider Unavailabl e Source Comments [facility],non-owned Affiliates and Associated Physician Practices is amultiple site organization consisting of ambulatory clinics and hospital sitesin [place], [place], [place] and [place]. This disclosure is being madepursuant to the Care Everywhere program and may not contain all information available regarding this patient. Last updated 18.[facility] [employer] Social History Tobacco Use Types Packs/Day Years [...] to Subscriber:Self Name:EDWIN CORTÉS Payer ID:[id number] (NAIC) Type:[employer] Address: [place] [id number] [place] [id number] [facility] [place] [phone]
--- OUTSIDE RECORDS SUMMARY | 2025-04-15 17:34 | XMS_ITS | Clinical Summary ---
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
--- OUTSIDE RECORDS SUMMARY | 2025-04-15 17:34 | XMS_ITS | Encounter Summary ---
Author Organization [facility] Address [address] [facility] [place] [address] Care Team Providers Care Machine Heel Builder Name Role Phone Unavailable Primary Care Provider Unavailabl e Encounter Details Date Type Department Care Team (Late st Contact Info) Description 11/16/2023 Lab Requisition [facility] - DermPath Lab [address] [place] [phone] Boby Plunkett MD [facility] DERMATOLOGY [address] [place] [phone] Neoplasm of uncertain behavior of skin [...] AM CDT) Case Report Dermatopathology Report Case: [id number] Authorizing Provider: Boby Plunkett MD Collected: 11/16/2023 12:00 AM Ordering Location: [facility] - Received: 11/17/2023 04:30 PM [...] characteristic determined by the Dermatopathology Laboratory at [facility], directed by Dr. Luis Miguel Snyder. These tests need not be, and therefore are not, approved by the [place] Food and Drug Administration. The tests are used for clinical purposes. Billing Codes Specimen Charges Stain Charges 08798 1 4 4:33 PM CDT DERMATOPATHOLOGY LABORATORY Embedded Images 4 4:33 PM CDT DERMATOPATHOLOGY LABORATORY Pathology/Cytolog y TISSUE SPECIMEN FROM SKIN / Unknown 11/16/2023 11/17/2023 4:30 PM CDT us Boby Plunkett MD LAB - PATHOLOGY/CYTOLOGY DORA CARVALHO Final Result DERMATOPATHOLOGY LABORATORY [facility] - Department of Dermatology [address] [place] [address], [facility] [phone] documented in this encounter Visit Diagnoses Diagnosis Neoplasm of uncertain behavior of skin documented in this encounter
== END 2025-04-15 18:47 | disposition left against medical advice (07) ==
LOC: ANHED 17:31
PROVIDERS: PCP Nurse Practitioner Family
DX: Z53.21 Procedure and treatment not carried out due to patient leaving prior to being seen by health care provider (principal)
CPT/HCPCS: 99199